=== PATIENT | male | born 1990 | race African-American/Black ===

== ENCOUNTER 2017-10-08 07:45 | Emergency (ER) | payer OTHER ==
[2017-10-08 07:55] VITALS: BP 139/77
[2017-10-08] MEDS ORDERED: DEXAMETHASONE 10 MG/ML VIAL PO STA (08:13)
--- NOTE | 2017-10-08 08:16 | ED Physician Documentation ---
PD HPI HEENT - Stated complaint Stated Complaint: THROAT PAIN - Chief complaint Chief Complaint: Heent - History obtained from History obtained from: Patient - History of Present Illness Timing - onset: How many weeks ago (2) Timing - duration: Weeks (2) Timing - details: Gradual onset, Still present Location: Throat Improves: Medication Worsens: Swalllowing Associated symptoms: Congestion, Swollen nodes Similar symptoms before: Has not had sx before Recently seen: Clinic - Additional information Additional information: 27-year-old male has had a sore throat for 2 weeks. He is to had a positive other symptoms but he has had some trouble with his voice and has some pain with swallowing. He denies a cough or fever. He was treated at [facility] with a penicillin injection and he had a negative rapid strep. Despite the treatment he continues to be symptomatic. He does have a history of G6PD Review of Systems Constitutional: reports: Fatigue. denies: Fever, Myalgias Eyes: denies: Decreased vision Ears: denies: Ear pain Nose: reports: Congestion Throat: reports: Sore throat Cardiac: denies: Chest pain / pressure, Palpitations Respiratory: denies: Dyspnea, Cough GI: denies: Abdominal Pain, Nausea, Vomiting : denies: Dysuria, Frequency PD PAST MEDICAL HISTORY - Past Medical History Past Medical History: Yes Other Past Medical History: G6PD - Past Surgical History Past Surgical History: No - Present Medications Home Medications: Ambulatory Orders Medication Instructions Recorded Confirmed Azithromycin [Zithromax] 250 mg PO DAILY #6 tablet 10/08/17 - Allergies Allergies/Adverse Reactions: Allergies Allergy/AdvReac Type Severity Reaction Status Date / Time Sulfa (Sulfonamide Allergy Unknown Verified 10/08/17 07:53 Antibiotics) - Social History Does the pt smoke?: Yes Smoking Status: Current every day smoker PD ED PE NORMAL - Vitals Vital signs reviewed: Yes (normal ) - General General: Alert and oriented X 3, No acute distress, Well developed/nourished - HEENT HEENT: Atraumatic, PERRL, EOMI, Other (The left TM is mildly inflamed and the right is clear. The pharynx has 3+ tonsils without exudate smooth and with swollen uvula. ) - Neck Neck: Supple, no meningeal sign, No bony TTP - Cardiac Cardiac: RRR, No murmur - Respiratory Respiratory: No respiratory distress, Clear bilaterally - Abdomen Abdomen: Soft, Non tender - Back Back: No CVA TTP, No spinal TTP - Derm Derm: Normal color, Warm and dry, No rash - Extremities Extremities: No deformity, No edema - Neuro Neuro: No motor deficit, No sensory deficit Eye Opening: Spontaneous Motor: Obeys Commands Verbal: Oriented GCS Score: 15 - Psych Psych: Normal mood, Normal affect Results - Vitals Vitals: Vital Signs - 24 hr 10/08/17 07:54 Temperature 36.7 C Heart Rate 80 Respiratory 16 Rate Blood Pressure 139/77 H O2 Saturation 100 Oxygen O2 Source Room air - Labs Labs: Laboratory Tests 10/08/17 08:20 Infectious [place] Assay NEGATIVE PD MEDICAL DECISION MAKING - ED course Complexity details: reviewed results, re-evaluated patient, considered differential, d/w patient ED course: 27-year-old male with a two-week history of sore throat appears to have tonsillopharyngitis with a negative rapid strep and negative mono spot. He continues to have significant swelling to his tonsils and he does have some inflammation in the left middle ear as well. He is placed under a course of azithromycin after receiving 10 mg of dexamethasone here in the emergency department. Departure - Departure Disposition: 01 Home, Self Care Clinical Impression: Tonsillopharyngitis Otitis media Qualifiers: Otitis media type: suppurative Chronicity: acute Laterality: left Recurrence: not specified as recurrent Spontaneous tympanic membrane rupture: without spontaneous rupture Qualified Code(s): H66.002 - Acute suppurative otitis media without spontaneous rupture of ear drum, left ear Condition: Stable Instructions: ED Tonsillitis, ED Otitis Media Acute Adult Follow-Up: [facility] [Provider Group] Prescriptions: Azithromycin [Zithromax] 250 mg PO DAILY #6 tablet Forms: Activity restrictions
== END 2017-10-08 09:38 | disposition home or self-care (01) ==
LOC: ED 07:45
DX: J03.90 Acute tonsillitis, unspecified (principal); H66.002 Acute suppurative otitis media without spontaneous rupture of ear drum, left ear; F17.200 Nicotine dependence, unspecified, uncomplicated
CPT/HCPCS: 36415; 86308; 99283